=== PATIENT | male | born 1940 | race Caucasian/White ===

== ENCOUNTER 2017-11-26 07:44 | Emergency (ER) | payer MEDICAID, OTHER ==
[~2017-11-26] VITALS: Ht 177.8 cm; Wt 95.3 kg
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
[2017-11-26] MEDS ORDERED: RT-ALBUTEROL/IPRATROPIUM 3 ML (DUONEB) VIAL INH ONE (08:00)
[2017-11-26] MEDS ORDERED: ASPI-586 PO (08:00)
[2017-11-26] MEDS ORDERED: ALBUTEROL (08:00)
[2017-11-26] MEDS ORDERED: RT-ALBUTEROL SULF 2.5 MG/3 ML PRE-MIX VIAL ONE (08:30)
[2017-11-26] MEDS ORDERED: RT-ALBUTEROL SULF 2.5 MG/3 ML PRE-MIX VIAL INH STA (08:31)
--- NOTE | 2017-11-26 08:40 | ED General ---
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 He is unable to afford a new prescription until Friday when he gets his check. He does not have a prescription available. Timing/Duration: 2-3 Days Severity: Moderate Associated Systoms: No Chest Pain, Cough, No Fever/Chills, No Nausea/Vomiting, Shortness of Air, No Weakness Allergies and Home Medications Allergies Coded Allergies: No Known Drug Allergies (Unverified , 11/26/17) Home Medications Albuterol Sulfate 2.5 Mg/3 Ml Vial.neb, 2.5 MG IH Q4H PRN for WHEEZING Prescribed by: FARRUKH GOMEZ on 11/26/17 0844 Constitutional: see HPI EENTM: no symptoms reported Respiratory: see HPI, short of breath, wheezing Cardiovascular: no symptoms reported Gastrointestinal: no symptoms reported Musculoskeletal: no symptoms reported Past Ommrxsg-Uoannd-Hyrcwf Hx Patient Social History Alcohol Use: Denies Use Recreational Drug Use: No Smoking Status: Never a Smoker Recent Foreign Travel: No Contact w/Someone Who Travel: No Recent Infectious Disease Expo: No Surgeries History of Surgeries: No Respiratory History of Respiratory Disorde: Yes Respiratory Disorders: COPD Cardiovascular History of Cardiac Disorders: No Neurological History of Neurological Disord: No Genitourinary History of Genitourinary Disor: No Gastrointestinal History of Gastrointestinal Di: No Musculoskeletal History of Musculoskeletal Dis: No Endocrine History of Endocrine Disorders: No HEENT History of HEENT Disorders: No Cancer History of Cancer: No Psychosocial History of Psychiatric Problem: No Integumentary History of Skin or Integumenta: No Reviewed Nursing Assessment Reviewed/Agree w Nursing PMH: Yes Physical Exam Vital Signs Vital Signs - First Documented 11/26/17 11/26/17 07:50 08:14 Temp 99.0 Pulse 92 Resp 18 B/P (MAP) 145/81 (102) Pulse Ox 94 O2 Delivery Room Air Capillary Refill : Less Than 3 Seconds General Appearance: No Apparent Distress, WD/WN Neck: Non Tender, Supple Respiratory: No Accessory Muscle Use, Decreased Breath Sounds, Wheezing Cardiovascular: Regular Rate, Rhythm, No Murmur Gastrointestinal: Non Tender, Soft Neurologic/Psychiatric: Alert, Oriented x3 Skin: Normal Color, Warm/Dry Progress/Results/Core Measures Suspected Sepsis Recent Fever Within 48 Hours: No Infection Criteria Present: None New/Unexplained Altered Menta: No Sepsis Screen: No Definite Risk Sepsis Diagnosis: SIRS Temperature:99.0 Pulse: 92 Respiratory Rate: 18 Blood Pressure 145 /81 Mean: 102 Results/Orders My Orders Orders - FARRUKH GOMEZ MD Albuterol/Ipra Inhalation Soln (Duoneb I (11/26/17 08:00) Svn Sm Volume Nebulizer Rt-Rfs (11/26/17 07:59) Albuterol Pre-Mix Nebs (Rt) (Proventil (11/26/17 08:31) Svn Sm Volume Nebulizer Rt-Rfs (11/26/17 08:31) Albuterol Pre-Mix Nebs (Rt) (Proventil (11/26/17 08:30) Medications Given in ED Current Medications Medications Dose Ordered Sig/Carlos Route Start Time Stop Time Status Last Admin Dose Admin Albuterol/ Ipratropium 3 ml ONCE ONCE INH 11/26/17 08:00 11/26/17 08:01 DC 11/26/17 08:12 3 ML Vital Signs/I&O Vital Sign - Last 12Hours 11/26/17 11/26/17 11/26/17 07:50 08:14 08:37 Temp 99.0 Pulse 92 Resp 18 B/P (MAP) 145/81 (102) Pulse Ox 94 95 96 O2 Delivery Room Air Room Air Capillary Refill : Less Than 3 Seconds Blood Pressure Mean: 102 Progress Note : Progress Note Seen and evaluated. Duo neb ordered and given. This did improve his symptoms but not to baseline. Albuterol neb given and this is markedly improved his symptoms. I discussed the case with Dr. Ahn. Patient is unable to get prescription until Friday. She will assist with pharmacy order to provide albuterol neb treatments. Patient is to go to the [facility] here in town to their pharmacy for picking up of meds. This was discussed with the patient who agrees. Discharged home with return precautions. Patient verbalize understanding instructions and agreement with plan. Prescription written by me and authorized by her. Departure Impression Impression: Primary Impression: COPD (chronic obstructive pulmonary disease) Qualified Codes: J42 - Unspecified chronic bronchitis Disposition: 01 HOME, SELF-CARE Condition: Improved Departure-Patient Inst. Decision time for Depature: 08:47 Referrals: DIANNE AHN MD NO,LOCAL PHYSICIAN (PCP) Primary Care Physician Patient Instructions: Exacerbation of COPD (DC) Add. Discharge Instructions: All discharge instructions reviewed with patient and/or family. Voiced understanding. Address that comes up here take medications as directed. Go to the [facility] on [facility] to get your prescription. This was sent electronically to them. Dr. Ahn will verify prescription and they should fill that for you. If there is any problems, they should call her for verification. Return for worsening, fever, vomiting, weakness, breathing problems or other concerns as needed. He should follow up with your Dr. at the [facility] within one week for recheck and further evaluation and to ensure that you have adequate prescriptions. Scripts Albuterol Sulfate (Albuterol Sulfate) 2.5 Mg/3 Ml Vial.neb 2.5 MG IH Q4H Y for WHEEZING, #100 EA 0 Refills Prov: FARRUKH GOMEZ MD 11/26/17 Copy Copies To 1: DIANNE AHN MD, TIMOTHY D MD Nov 26, 2017 08:40
[2017-11-26] MEDS ORDERED: ALBU2.5V4 IH (08:44)
[2017-11-26 09:03] VITALS: BP 145/81
== END 2017-11-26 09:03 | disposition home or self-care (01) ==
LOC: ER 07:48
DX: J44.9 Chronic obstructive pulmonary disease, unspecified (principal)
CPT/HCPCS: 94640; 99281

== ENCOUNTER 2017-12-06 13:10 | Emergency (ER) | payer MEDICARE, MEDICAID ==
[~2017-12-06] VITALS: Ht 185.4 cm; Wt 93.0 kg
[~2017-12-06 13:10] MED LIST: ALBU2.5V4 IH; ALBUTEROL; ASPI-586 PO
[2017-12-06] MEDS ORDERED: RX-MUPIROCIN (BACTROBAN) 2% OINT 22 GM TUBE TOP STA (15:16)
[2017-12-06] MEDS ORDERED: RT-ALBUTEROL/IPRATROPIUM 3 ML (DUONEB) VIAL INH ONE (15:30)
--- NOTE | 2017-12-06 16:22 | Diagnostic Imaging Report ---
EXAM: Chest PA/LAT (2 view). INDICATION: Cough. Congestion. COMPARISON: None. FINDINGS: Normal heart size and pulmonary vascularity. No focal pulmonary opacity, pleural effusion or pneumothorax. No acute osseous findings. IMPRESSION: No acute cardiopulmonary findings. Dictated by: Dictated on workstation # [id number]
--- NOTE | 2017-12-06 16:37 | ED Cough/URI ---
General Chief Complaint: Cough/Cold/Flu Symptoms Stated Complaint: CHILLS,BODY ACHES Nursing Triage Note: Patient advises that he started experiencing chills this morning. He states he has had a cough for a couple days and that he has had pneumonia before. History of Present Illness Date Seen by Provider: Dec 06, 2017 Time Seen by Provider: 15:10 Initial Comments 77-year-old male presents for congestion, cough and chills. He is afebrile. He is a history of COPD and has been using his albuterol inhaler every 6 hours. Today he noted a productive cough when he woke up, prior to that he was not having any phlegm production. He denies shortness of air. He also complains of 2 small bumps in his scalp. Timing/Duration: intermittent Severity/Quality: productive cough Prior Episodes/Possible Cause: occasional episodes Associated Symptoms: cough, fever/chills Allergies and Home Medications Allergies Coded Allergies: No Known Drug Allergies (Unverified , 12/06/17) Home Medications Albuterol Sulfate 2.5 Mg/3 Ml Vial.neb, 2.5 MG IH Q4H PRN for WHEEZING Prescribed by: FARRUKH GOMEZ on 11/26/17 0844 Patient Home Medication List Home Medication List Reviewed: Yes Constitutional: no symptoms reported, see HPI Respiratory: see HPI, cough, No dyspnea on exertion, No short of breath, No wheezing Skin: see HPI, lumps (right and left posterior auricle) All Other Systems Reviewed Negative Unless Noted: Yes Past Qworypz-Uaqkgf-Krjtgg Hx Patient Social History Alcohol Use: Denies Use Recreational Drug Use: No Smoking Status: Never a Smoker Recent Foreign Travel: No Contact w/Someone Who Travel: No Recent Infectious Disease Expo: No Physical Abuse: No Sexual Abuse: No Seasonal Allergies Seasonal Allergies: No Surgeries History of Surgeries: No Respiratory History of Respiratory Disorde: Yes Respiratory Disorders: COPD Cardiovascular History of Cardiac Disorders: Yes Cardiac Disorders: Hypertension Neurological History of Neurological Disord: No Genitourinary History of Genitourinary Disor: No Gastrointestinal History of Gastrointestinal Di: No Musculoskeletal History of Musculoskeletal Dis: No Endocrine History of Endocrine Disorders: No HEENT History of HEENT Disorders: No Cancer History of Cancer: No Psychosocial History of Psychiatric Problem: No Suicide Risk Score: 0 Integumentary History of Skin or Integumenta: No Reviewed Nursing Assessment Reviewed/Agree w Nursing PMH: Yes Physical Exam Vital Signs Vital Signs - First Documented 12/06/17 14:44 Temp 98.2 Pulse 91 Resp 20 B/P (MAP) 130/86 (101) Pulse Ox 96 O2 Delivery Room Air Capillary Refill : Less Than 3 Seconds General Appearance: WD/WN, no apparent distress Eyes: Bilateral Eye Normal Inspection, Bilateral Eye PERRL, Bilateral Eye EOMI HEENT: PERRL/EOMI, normal ENT inspection, TMs normal, pharynx normal Neck: non-tender, full range of motion, supple, normal inspection Respiratory: chest non-tender, lungs clear, normal breath sounds Cardiovascular: normal peripheral pulses, regular rate, rhythm Gastrointestinal: normal bowel sounds, non tender, soft Neurologic/Psychiatric: no motor/sensory deficits, alert, normal mood/affect, oriented x 3 Skin: normal color, other (small area of loculated is noted behind bilateral ears, left is dry and healing. Right side there is trace fluctuance, trace purulent drainage expressed.) Progress/Results/Core Measures Suspected Sepsis Recent Fever Within 48 Hours: No Infection Criteria Present: Suspected New Infection New/Unexplained Altered Menta: No Sepsis Screen: No Definite Risk Sepsis Diagnosis: SIRS Temperature:98.2 Pulse: 91 Respiratory Rate: 20 Blood Pressure 130 /86 Mean: 101 Results/Orders My Orders Orders - DUSTIN DALAL Chest Pa/Lat (2 View) (12/06/17 15:16) Rx-Mupirocin 2% Oint (Rx-Bactroban) (12/06/17 15:16) Albuterol/Ipra Inhalation Soln (Duoneb I (12/06/17 15:30) Svn Sm Volume Nebulizer Rt-Rfs (12/06/17 15:16) Rt Request For Service (12/06/17 15:16) Medications Given in ED Current Medications Medications Dose Ordered Sig/Cralos Route Start Time Stop Time Status Last Admin Dose Admin Albuterol/ Ipratropium 3 ml ONCE ONCE INH 12/06/17 15:30 12/06/17 15:31 DC 12/06/17 15:29 3 ML Vital Signs/I&O Vital Sign - Last 12Hours 12/06/17 12/06/17 12/06/17 12/06/17 14:44 14:44 15:29 16:41 Temp 98.2 Pulse 91 91 Resp 20 18 B/P (MAP) 130/86 (101) 130/86 Pulse Ox 96 92 95 O2 Delivery Room Air Room Air Room Air Room Air Capillary Refill : Less Than 3 Seconds Blood Pressure Mean: 101 Progress Note : Time: 15:10 Progress Note Initial evaluation completed, recommended chest x-ray and DuoNeb treatment. We' ll continue to monitor. 1600 Bactroban ointment applied to areas of folliculitis to scalp. 1630 discharge instructions and return precautions reviewed with the patient, all questions answered. Departure Impression Impression: Primary Impression: Folliculitis Additional Impressions: Cough Upper respiratory virus Disposition: HOME, SELF-CARE Condition: Improved Departure-Patient Inst. Decision time for Depature: 16:30 [facility] Primary Care Physician Patient Instructions: Cough, Adult (DC), Folliculitis (DC) Add. Discharge Instructions: Adgj-zoe-simmvlu Mucinex, one tablet twice daily with full glass of water. Apply Mupirocin to area of inflammation on scalp 3 times daily. Follow-up with your primary care provider in 2-3 days if symptoms are not improving. Return to emergency department for new problems. All discharge instructions reviewed with patient and/or family. Voiced understanding. DUSTIN DALAL Dec 06, 2017 16:36
[2017-12-06 16:41] VITALS: BP 130/86
== END 2017-12-06 16:42 | disposition home or self-care (01) ==
LOC: EDUNIT# 13:10 → ER 13:13
DX: L73.9 Follicular disorder, unspecified (principal); J06.9 Acute upper respiratory infection, unspecified; J44.9 Chronic obstructive pulmonary disease, unspecified; I10 Essential (primary) hypertension; Z87.01 Personal history of pneumonia (recurrent)
CPT/HCPCS: 71046; 94640

== ENCOUNTER 2019-01-02 07:51 | Emergency (ER) | payer MEDICARE, MEDICAID ==
[~2019-01-02] VITALS: Ht 177.8 cm; Wt 94.3 kg
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
--- OUTSIDE RECORDS SUMMARY | 2019-01-02 07:57 | XMS REPORT ---
Author Author ANÍBAL BRIDGES [facility] Address [address] [place] [address] Care Team Providers Care Utility Worker Forge Name Role Phone ANÍBAL BRIDGES Unavailable PROBLEMS ALLERGIES No Information ENCOUNTERS IMMUNIZATIONS No Known Immunizations SOCIAL HISTORY No smoking Hx information available REASON FOR VISIT PLAN OF CARE VITAL SIGNS MEDICATIONS RESULTS No Results PROCEDURES No Known procedures INSTRUCTIONS MEDICATIONS ADMINISTERED No Known Medications MEDICAL (GENERAL) HISTORY
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
--- OUTSIDE RECORDS SUMMARY | 2019-01-02 07:57 | XMS REPORT ---
Author Author ANÍBAL BRIDGES [facility] Address [address] [place] [address] Care Team Providers Care Enterprise Resource Planning Consultant Name Role Phone ANÍBAL BRIDGES Unavailable PROBLEMS ALLERGIES No Information ENCOUNTERS IMMUNIZATIONS No Known Immunizations SOCIAL HISTORY No smoking Hx information available REASON FOR VISIT PLAN OF CARE VITAL SIGNS MEDICATIONS RESULTS No Results PROCEDURES No Known procedures INSTRUCTIONS MEDICATIONS ADMINISTERED No Known Medications MEDICAL (GENERAL) HISTORY
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
[2019-01-02] MEDS ORDERED: RT-ALBUTEROL/IPRATROPIUM 3 ML (DUONEB) VIAL INH ONE (08:30)
--- NOTE | 2019-01-02 09:18 | Diagnostic Imaging Report ---
INDICATION: Chest pain and cough. Comparison is made with prior examination from 12/06/2017. PA and lateral views were obtained. FINDINGS: The heart size is normal. There is a questionable nodular density in the right suprahilar region. There is no pleural effusion or pneumothorax. The mediastinum is unremarkable. There is no pneumonia. IMPRESSION: Questionable nodule in the right upper lobe. Possibility of underlying mass cannot be excluded. Recommend further evaluation with CT chest. No other acute cardiopulmonary abnormality. Dictated by: Dictated on workstation # [id number]
--- NOTE | 2019-01-02 09:24 | ED Respiratory ---
General Chief Complaint: Respiratory Problems Stated Complaint: SOB Nursing Triage Note: PT PRESENT TO ED WITH COMPLAINTS OF WORSENING COUGH THE PAST FEW DAYS AND SOA STARTING THIS AM WHEN HE WOKE UP. Source: patient Exam Limitations: no limitations History of Present Illness Date Seen by Provider: Jan 02, 2019 Time Seen by Provider: 08:15 Initial Comments This 78-year-old gentleman presents to the emergency room with complaints of cough and shortness of air upon waking this morning. He has history of COPD. He has inhalers but does not have medication for his nebulizer machine anymore. He was seen the [facility] but thinks he would like to change providers. He has not established with anyone else yet. He therefore does not have anyone to prescribe his nebulizer solution.. He has a smoking history and quit about 6 or 7 years ago. He denies any fever or other symptoms. Allergies and Home Medications Allergies Coded Allergies: No Known Drug Allergies (Unverified , 12/06/17) Home Medications Albuterol Sulfate 2.5 Mg/3 Ml Vial.neb, 2.5 MG IH Q4H PRN for WHEEZING Prescribed by: FARRUKH GOMEZ on 11/26/17 0844 Albuterol Sulfate 2.5 Mg/3 Ml Vial.neb, 2.5 MG INH Q4H PRN for SHORTNESS OF BREATH Prescribed by: VAN VALVERDE on 01/02/19 0931 Patient Home Medication List Home Medication List Reviewed: Yes Review of Systems Review of Systems Constitutional: no symptoms reported EENTM: no symptoms reported Respiratory: see HPI Cardiovascular: no symptoms reported Gastrointestinal: no symptoms reported Genitourinary: no symptoms reported Musculoskeletal: no symptoms reported Skin: no symptoms reported Psychiatric/Neurological: No Symptoms Reported Hematologic/Lymphatic: No Symptoms Reported Past Uftzask-Eynlxb-Qzcegh Hx Patient Social History Alcohol Use: Denies Use Recreational Drug Use: No Smoking Status: Former Smoker Former Smoker, Quit: Jan 16, 2014 Recent Foreign Travel: No Contact w/Someone Who Travel: No Recent Infectious Disease Expo: No Physical Abuse: No Sexual Abuse: No Mistreated: No Fear: No Seasonal Allergies Seasonal Allergies: No Past Medical History Surgeries: No Respiratory: Yes COPD Cardiac: Yes Hypertension Neurological: No Genitourinary: No Gastrointestinal: No Musculoskeletal: No Endocrine: No HEENT: No Cancer: No Psychosocial: No Integumentary: No Physical Exam Vital Signs - First Documented 01/02/19 01/02/19 08:08 08:42 Temp 97.4 Pulse 84 Resp 20 B/P (MAP) 124/77 (93) Pulse Ox 94 O2 Delivery Room Air Capillary Refill : Less Than 3 Seconds Height: 5'10.00" Weight: 208lbs. oz. 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, no motor/sensory deficits, alert, normal mood/affect, oriented x 3 Skin: normal color, warm/dry Progress/Results/Core Measures Suspected Sepsis Recent Fever Within 48 Hours: No Infection Criteria Present: None New/Unexplained Altered Menta: No Sepsis Screen: No Definite Risk SIRS Temperature:97.4 Pulse: 84 Respiratory Rate: 20 Blood Pressure 124 /77 Mean: 93 Results/Orders Micro Results Microbiology 01/02/19 Influenza Types A,B Antigen (LUIS MIGUEL) - Final, Complete My Orders Orders - VAN NGO MD Chest Pa/Lat (2 View) (01/02/19 08:19) Influenza A And B Antigens (01/02/19 08:19) Albuterol/Ipra Inhalation Soln (Duoneb I (01/02/19 08:30) Svn Small Volume Nebulizer (01/02/19 08:30) Medications Given in ED Vital Signs/I&O 01/02/19 01/02/19 01/02/19 08:08 08:42 09:40 Temp 97.4 Pulse 84 88 Resp 20 20 B/P (MAP) 124/77 (93) 122/90 (101) Pulse Ox 94 96 95 O2 Delivery Room Air Capillary Refill : Less Than 3 Seconds Blood Pressure Mean: 93 Progress Note : Progress Note DuoNeb treatment was administered which resolved his symptoms. Nebulizer solution was prescribed. Patient was strongly encouraged to follow up promptly with a primary care provider. A questionable pulmonary nodules noted on the chest x-ray. Patient was offered a CT scan for further assessment but declined. He was strongly encouraged to seek prompt follow-up with a primary care provider to monitor this nodule. Patient requested contact information for Dr. Matt Kurtz. Diagnostic Imaging Diagonstic Imaging: Xray Plain Films/CT/US/NM/MRI: chest Comments Chest x-ray viewed by me and report reviewed. See report below: NAME: MARTELL CORREA REC#: [id number] PT STATUS: REG ER : 1940 PHYSICIAN: VAN NGO MD ADMIT DATE: 01/02/19/ER Draft Date of Exam:01/02/19 CHEST PA/LAT (2 VIEW) INDICATION: Chest pain and cough. Comparison is made with prior examination from 12/06/2017. PA and lateral views were obtained. FINDINGS: The heart size is normal. There is a questionable nodular density in the right suprahilar region. There is no pleural effusion or pneumothorax. The mediastinum is unremarkable. There is no pneumonia. IMPRESSION: Questionable nodule in the right upper lobe. Possibility of underlying mass cannot be excluded. Recommend further evaluation with CT chest. No other acute cardiopulmonary abnormality. Dictated on workstation # [id number] Dict: 01/02/19 0910 Trans: 01/02/19 0918 [facility] [id number] Interpreted by: KEENAN VORA MD Departure Impression Primary Impression: COPD exacerbation Additional Impression: Pulmonary nodule Disposition: 01 HOME, SELF-CARE Condition: Improved Departure-Patient Inst. Decision time for Depature: 09:29 Referrals: NO,LOCAL PHYSICIAN (PCP) Primary Care Physician MATT KURTZ MD Patient Instructions: Exacerbation of COPD, Pulmonary Nodule Add. Discharge Instructions: Use your nebulizer as prescribed. Return to care if you have worsening symptoms. Establish with a primary care provider or return to [facility] in [place] as soon as possible. You need to discuss the pulmonary nodule seen on x-ray with a primary care provider as soon as possible. Further evaluation with a CT scan was recommended by the radiologist. All discharge instructions reviewed with patient and/or family. Voiced understanding. Scripts Albuterol Sulfate (Albuterol Sulfate) 2.5 Mg/3 Ml Vial.neb 2.5 MG INH Q4H PRN for SHORTNESS OF BREATH, #30 EA 1 Refill Prov: VAN NGO MD 01/02/19 Copy Copies To 1: MATT KURTZ MD, JOSHUA T MD Jan 02, 2019 09:24
[2019-01-02] MEDS ORDERED: ALBU2.5V4 INH (09:31)
[2019-01-02 09:40] VITALS: BP 122/90
== END 2019-01-02 09:40 | disposition home or self-care (01) ==
LOC: EDUNIT# 07:51 → ER 07:53
DX: J44.1 Chronic obstructive pulmonary disease with (acute) exacerbation (principal); R91.8 Other nonspecific abnormal finding of lung field; I10 Essential (primary) hypertension; Z87.891 Personal history of nicotine dependence
CPT/HCPCS: 71046; 87804; 94640

== ENCOUNTER 2019-01-20 18:18 | Emergency (ER) | payer MEDICARE, MEDICAID ==
[~2019-01-20] VITALS: Ht 177.8 cm; Wt 93.9 kg
[~2019-01-20 18:18] MED LIST changes: +ALBU2.5V4 INH
[2019-01-20] MEDS ORDERED: CEPHALEXIN 250 MG (KEFLEX) CAP PO ONE (19:15)
[2019-01-20] MEDS ORDERED: TRIM/SULFAMETH 160/800 (SEPTRA DS) TAB PO ONE (19:15)
[2019-01-20] MEDS ORDERED: SULF1TAB35 PO (19:16)
[2019-01-20] MEDS ORDERED: CEPH-507 PO (19:16)
--- NOTE | 2019-01-20 19:16 | ED Integumentary General ---
General Chief Complaint: Skin/Wound Problems Stated Complaint: SKIN LESIONS ON L ARM AND HEAD Nursing Triage Note: PT AMB TO TRIAGE WITH COMPLAINT OF AREA OF CONCERNS ON LEFT ARM AND HEAD. PT STATES HES HAD THEM FOR THREE DAYS. Source: patient Exam Limitations: no limitations History of Present Illness Date Seen by Provider: Jan 20, 2019 Time Seen by Provider: 19:13 Initial Comments To ER with reports of sores for 3 days. He has one on the back of his neck, one to the dorsal right forearm, one to the dorsal left forearm. Timing/Duration: just prior to arrival Severity: moderate Location: extremities Associated Symptoms: denies symptoms Allergies and Home Medications Allergies Coded Allergies: No Known Drug Allergies (Unverified , 12/06/17) Home Medications Albuterol Sulfate 2.5 Mg/3 Ml Vial.neb, 2.5 MG IH Q4H PRN for WHEEZING Prescribed by: FARRKUH GOMEZ on 11/26/17 0844 Albuterol Sulfate 2.5 Mg/3 Ml Vial.neb, 2.5 MG INH Q4H PRN for SHORTNESS OF BREATH Prescribed by: VAN VALVERDE on 01/02/19 0931 Patient Home Medication List Home Medication List Reviewed: Yes Review of Systems Review of Systems Constitutional: see HPI EENTM: see HPI Respiratory: no symptoms reported Cardiovascular: no symptoms reported Genitourinary: no symptoms reported Musculoskeletal: no symptoms reported Skin: see HPI Psychiatric/Neurological: No Symptoms Reported Endocrine: No Symptoms Reported Past Wcttmce-Sbroyk-Xrudsc Hx Patient Social History Alcohol Use: Denies Use Recreational Drug Use: No Smoking Status: Former Smoker Former Smoker, Quit: Jan 16, 2014 Recent Foreign Travel: No Contact w/Someone Who Travel: No Recent Infectious Disease Expo: No Immunizations Up To Date Tetanus Booster (TDap): Unknown PED Vaccines UTD: Yes Seasonal Allergies Seasonal Allergies: No Past Medical History Surgeries: No Respiratory: Yes COPD Cardiac: Yes Hypertension Neurological: No Genitourinary: No Gastrointestinal: No Musculoskeletal: No Endocrine: No HEENT: No Cancer: No Psychosocial: No Integumentary: No Physical Exam Vital Signs Vital Signs - First Documented 01/20/19 18:21 Pulse 99 Resp 20 B/P (MAP) 134/80 (98) Pulse Ox 95 O2 Delivery Room Air Capillary Refill : Less Than 3 Seconds General Appearance: WD/WN, no apparent distress HEENT: PERRL/EOMI, normal ENT inspection Respiratory: no respiratory distress, no accessory muscle use Neurologic/Psychiatric: alert, normal mood/affect, oriented x 3 Skin: normal color, warm/dry Skin Problem Character: abscess, other (nodule to the posterior neck without fluctuance. This measures about 1-1/2 cm in diameter. This has erythema of the overlying skin. There is a pustule to the dorsal left forearm. There is about 4- 5 cm of cellulitis surrounding the wound on the left forearm.) Progress/Results/Core Measures Results/Orders My Orders Orders - SMITH MATTSON APRN Cephalexin Capsule (Keflex Capsule) (01/20/19 19:15) Sulfamethoxazole/Trimet Ds Tab (Bactrim (01/20/19 19:15) Vital Signs/I&O 01/20/19 18:21 Pulse 99 Resp 20 B/P (MAP) 134/80 (98) Pulse Ox 95 O2 Delivery Room Air Blood Pressure Mean: 98 Departure Impression Primary Impression: Soft tissue infection Disposition: 01 HOME, SELF-CARE Condition: Stable Departure-Patient Inst. Decision time for Depature: 19:14 Referrals: NO,LOCAL PHYSICIAN (PCP/Family) Primary Care Physician Patient Instructions: Cellulitis (Skin Infection), Adult (DC) Add. Discharge Instructions: 1. Antibiotics as directed 2. Return to ER for any concerns 3. See your doctor next week 4. All discharge instructions reviewed with patient and/or family. Voiced understanding. Scripts Sulfamethoxazole/Trimethoprim (Bactrim Ds Tablet) 1 Each Tablet 1 EACH PO BID, #14 TAB Prov: SMITH MATTSON APRN 01/20/19 Cephalexin (Keflex) 500 Mg Capsule 500 MG PO TID, #21 CAP Prov: SMITH MATTSON APRN 01/20/19 SMITH MATTSON APRN Jan 20, 2019 19:16
[2019-01-20 19:24] VITALS: BP 134/80
== END 2019-01-20 19:24 | disposition home or self-care (01) ==
LOC: EDUNIT# 18:18 → ER 18:19
DX: L08.89 Other specified local infections of the skin and subcutaneous tissue (principal); J44.9 Chronic obstructive pulmonary disease, unspecified; I10 Essential (primary) hypertension; Z87.891 Personal history of nicotine dependence
CPT/HCPCS: 99283

== ENCOUNTER 2019-04-17 01:24 | Emergency (ER) | payer MEDICARE, MEDICAID ==
[~2019-04-17] VITALS: Ht 177.8 cm; Wt 81.6 kg
[~2019-04-17 01:24] MED LIST changes: +CEPH-507 PO; +SULF1TAB35 PO
[2019-04-17 01:45] VITALS: BP 156/95
--- OUTSIDE RECORDS SUMMARY | 2019-04-17 02:00 | XMS REPORT | Continuity of Care Document ---
Author Organization Unknown Address Unknown Allergies Active Description Code Type Severity Reaction Onset Reported/Identified Relationship to Patient Clinical Status Yes No Known Drug Allergies [id number] Drug Allergy Unknown N/A 12/06/2017 Yes Penicillins [id number] Drug Allergy Unknown N/A 01/20/2019 Medications There is no data. Problems Date Dx Coded Attending Type Code Diagnosis Diagnosed By 11/26/2017 PATRICIA HAWKINS, FARRUKH Syed Ot J44.9 CHRONIC OBSTRUCTIVE PULMONARY DISEASE, U 12/01/2017 FARRUKH GOMEZ MD, Ot J44.9 CHRONIC OBSTRUCTIVE PULMONARY DISEASE, U 12/06/2017 MULUGETADUSTIN Hernandez LOCAL CITY DRIVER Ot I10 ESSENTIAL (PRIMARY) HYPERTENSION 12/06/2017 MULUGETA DUSTIN LOCAL CITY DRIVER Ot J06.9 ACUTE UPPER RESPIRATORY INFECTION, UNSPE 12/06/2017 MULUGETA, DUSTIN LOCAL CITY DRIVER Ot J44.9 CHRONIC OBSTRUCTIVE PULMONARY DISEASE, U 12/06/2017 MULUGETA, DUSTIN LOCAL CITY DRIVER Ot L73.9 FOLLICULAR DISORDER, UNSPECIFIED 12/06/2017 MULUGETA, DUSTIN LOCAL CITY DRIVER Ot R22.0 LOCALIZED SWELLING, MASS AND LUMP, HEAD 12/06/2017 MULUGETA, DUSTIN LOCAL CITY DRIVER Ot Z87.01 PERSONAL HISTORY OF PNEUMONIA (RECURRENT 12/08/2017 MULUGETA, DUSTIN LOCAL CITY DRIVER Ot I10 ESSENTIAL (PRIMARY) HYPERTENSION 12/08/2017 MULUGETA, DUSTIN LOCAL CITY DRIVER Ot J06.9 ACUTE UPPER RESPIRATORY INFECTION, UNSPE 12/08/2017 MULUGETA, DUSTIN LOCAL CITY DRIVER Ot J44.9 CHRONIC OBSTRUCTIVE PULMONARY DISEASE, U 12/08/2017 MULUGETA, DUSTIN LOCAL CITY DRIVER Ot L73.9 FOLLICULAR DISORDER, UNSPECIFIED 12/08/2017 MULUGETA, DUSTIN LOCAL CITY DRIVER Ot R22.0 LOCALIZED SWELLING, MASS AND LUMP, HEAD 12/08/2017 MULUGETA, DUSTIN LOCAL CITY DRIVER Ot Z87.01 PERSONAL HISTORY OF PNEUMONIA (RECURRENT 01/02/2019 HUBER HAWKINS, VAN Villanueva Ot I10 ESSENTIAL (PRIMARY) HYPERTENSION 01/02/2019 VAN NGO MD Ot J44.1 CHRONIC OBSTRUCTIVE PULMONARY DISEASE W 01/02/2019 VAN NGO MD Ot R05 COUGH 01/02/2019 VAN NGO MD Ot R91.8 OTHER NONSPECIFIC ABNORMAL FINDING OF MISAEL 01/02/2019 VAN NGO MD Ot Z87.891 PERSONAL HISTORY OF NICOTINE DEPENDENCE 01/04/2019 VAN NGO MD Ot I10 ESSENTIAL (PRIMARY) HYPERTENSION 01/04/2019 VAN NGO MD Ot J44.1 CHRONIC OBSTRUCTIVE PULMONARY DISEASE W 01/04/2019 VAN NGO MD Ot R05 COUGH 01/04/2019 VAN NGO MD Ot R91.8 OTHER NONSPECIFIC ABNORMAL FINDING OF MISAEL 01/04/2019 VAN NGO MD Ot Z87.891 PERSONAL HISTORY OF NICOTINE DEPENDENCE 01/08/2019 VAN NGO MD Ot I10 ESSENTIAL (PRIMARY) HYPERTENSION 01/08/2019 VAN NGO MD Ot J44.1 CHRONIC OBSTRUCTIVE PULMONARY DISEASE W 01/08/2019 VAN NGO MD Ot R05 COUGH 01/08/2019 VAN NGO MD Ot R91.8 OTHER NONSPECIFIC ABNORMAL FINDING OF MISAEL 01/08/2019 VAN NGO MD Ot Z87.891 PERSONAL HISTORY OF NICOTINE DEPENDENCE 01/20/2019 SMITH MATTSON APRN Ot I10 ESSENTIAL (PRIMARY) HYPERTENSION 01/20/2019 SMITH MATTSON APRN Ot J44.9 CHRONIC OBSTRUCTIVE PULMONARY DISEASE, U 01/20/2019 SMITH MATTSON APRN Ot L08.89 OTH LOCAL INFECTIONS OF THE SKIN AND SUB 01/20/2019 SMITH MATTSON APRN Ot L98.9 DISORDER OF THE SKIN AND SUBCUTANEOUS TI 01/20/2019 SMITH MATTSON APRN Ot Z87.891 PERSONAL HISTORY OF NICOTINE DEPENDENCE 01/22/2019 SMITH MATTSON APRN Ot I10 ESSENTIAL (PRIMARY) HYPERTENSION 01/22/2019 SMITH MATTSON APRN Ot J44.9 CHRONIC OBSTRUCTIVE PULMONARY DISEASE, U 01/22/2019 SMITH MATTSON APRN Ot L08.89 OTH LOCAL INFECTIONS OF THE SKIN AND SUB 01/22/2019 SMITH MATTSON APRN Ot L98.9 DISORDER OF THE SKIN AND SUBCUTANEOUS TI 01/22/2019 SMITH MATTSON APRN Ot Z87.891 PERSONAL HISTORY OF NICOTINE DEPENDENCE Procedures There is no data. Results Test Result Range Influenza virus A and B antigen detection - 01/02/19 08:28 FLU RESULT NEGATIVE FOR INFLUENZA A AND B ANTIGENS BY IA NRG Encounters ACCT No. Visit Date/Time Discharge Status Pt. Type Provider Facility Loc./Unit Complaint [id number] 01/20/2019 18:19:00 01/20/2019 19:24:00 DIS Emergency SMITH MATTSON APRN [facility] ER SKIN LESIONS ON L ARM AND HEAD [id number] 01/02/2019 07:53:00 01/02/2019 09:40:00 DIS Emergency HUBER HAWKINS, VAN Villanueva [facility] ER SOB [id number] 12/06/2017 13:13:00 12/06/2017 16:42:00 DIS Emergency DUSTIN DALAL [facility] ER CHILLS,BODY ACHES [id number] 11/26/2017 07:48:00 11/26/2017 09:03:00 DIS Emergency PATRICIA HAWKINS, FARRUKH Syed [facility] ER COPD-OUT OF MEDICINE/SOB X 3 DAYS
== END 2019-04-17 02:31 | disposition left against medical advice (07) ==
LOC: EDUNIT# 01:24 → ER 01:27
DX: S60.362A Insect bite (nonvenomous) of left thumb, initial encounter (principal); W57.XXXA Bitten or stung by nonvenomous insect and other nonvenomous arthropods, initial encounter
CPT/HCPCS: 99282